=== PATIENT | female | born 1970 | race Two or more races ===

== ENCOUNTER 2022-06-02 07:12 | Outpatient (CLI) | payer OTHER | END 2022-06-02 07:19 | disposition home or self-care (01) | LOC: TOM 07:12 | DX: R10.84 Generalized abdominal pain (principal); R19.4 Change in bowel habit ==

== ENCOUNTER 2022-12-31 07:37 | Outpatient (CLI) | payer OTHER | END 2022-12-31 07:38 | disposition home or self-care (01) | LOC: NUCLEAR 07:37 | PROVIDERS: ATTEND Internal Medicine | DX: E11.43 Type 2 diabetes mellitus with diabetic autonomic (poly)neuropathy (principal); K31.84 Gastroparesis; N11.0 Nonobstructive reflux-associated chronic pyelonephritis | CPT/HCPCS: 78264; A9541 ==

== ENCOUNTER 2023-07-10 10:48 | Emergency (ER) | payer OTHER ==
[~2023-07-10] VITALS: Ht 167.6 cm; Wt 75.7 kg
[2023-07-10] MEDS ORDERED: CARVEDILOL ER40 MG PO (11:18)
[2023-07-10] MEDS ORDERED: LANOXIN62.5 MCG (11:19)
[2023-07-10] MEDS ORDERED: SYNTHROID50 MCG PO (11:19)
[2023-07-10] MEDS ORDERED: LASIX80 MG (11:19)
[2023-07-10] MEDS ORDERED: LIPITOR20 MG (11:20)
[2023-07-10 13:36] LABS: HEMATOCRIT 37.6 % (36.0-45.00); HEMOGLOBIN 12.7 g/dL (12.0-15.00); MEAN CORPUSCULAR HEMOGLOBIN 28.3 pg (27.00-32.0); MEAN CORPUSCULAR HGB CONC 33.7 g/dl (32.0-36.0); PLATELET COUNT 327 K/uL (150-450); RED BLOOD COUNT 4.48 M/uL (4.00-6.00); RED CELL DISTRIBUTION WIDTH 12.8 % (11.5-14.5)
[2023-07-10 14:05] LABS: CALCIUM 9.3 mg/dL (8.5-10.1); CREATININE SERUM 0.78 mg/dL (0.55-1.02); GFR 76.96; POTASSIUM 4.44 mEq/L (3.5-5.1)
== END 2023-07-10 14:47 | disposition home or self-care (01) ==
LOC: ER 10:49
PROVIDERS: Emergency Medicine
DX: U07.1 COVID-19 (principal); I10 Essential (primary) hypertension; E05.80 Other thyrotoxicosis without thyrotoxic crisis or storm; Z95.0 Presence of cardiac pacemaker; I42.0 Dilated cardiomyopathy